=== PATIENT | female | born 1935 | race Caucasian/White ===

== ENCOUNTER 2016-07-06 16:03 | Inpatient (IN) | payer MEDICARE ==
[~2016-07-06 16:03] MED LIST: ADVAIR 100-501 EACH PO; ASPIRIN81 M1 PO; ATIVAN1 M2 PO; BACTRIM DS TAB1 EAC2 PO; BP MED; COMPAZINE10 MG PO; HYDRALAZINE HCL25 M1 PO; HYDROCODON-ACE1 EA16 PO; IRON18 M1 PO; LEVAQUIN750 M1 PO; MACROBID 100 M100 M1 PO; MAGNESIUM; MAGNESIUM DR64 M2 PO; MULTI VITAMIN1 EAC2 PO; NORCO 10-325 T1 EACH PO; NORVASC5 M2 PO; OS-CAL 500+D31 EAC1 PO; OXCARBAZEPINE300 M1 PO; PROTONIX40 M2 PO; TRILEPTAL300 M2 PO; TYLENOL EXTRA500 M1 PO; VENTOLIN HFA18 G2 PO; VITAMIN B122500 MC1 PO; ZOFRAN4 M2 PO
[2016-07-06 17:27] LABS: BASO % 0.4 % (0-2); EOS % 0.4 % (0-7); HGB-HEMOGLOBIN 7.8 gm/dl (12.0-15.5); LYMPH % 33.7 % (20-45); LYMPH ABSOLUTE COUNT 0.8 tho/cmm (0.8-4.5); MCH (MEAN CORPUSCULAR HGB) 38.2 pg (28.0-32.0); MCV (MEAN CELL VOLUME) 109.3 fl (82.0-96.0); MEAN PLATELET VOLUME 7.9 cmc (9.4-12.4); MONO % 11.8 % (0-12); MONOCYTE ABSOLUTE COUNT 0.3 tho/cmm (0.0-1.2); NEUTROPHIL ABSOLUTE COUNT 1.3 tho/cmm (1.6-8.0); NEUTROPHIL-AUTOMATED 1.3 tho/cmm (1.6-8.0); NEUTROPHILS % 53.7 % (40-80); PLATELET COUNT 90 tho/cmm (150-450); RED BLOOD COUNT 2.04 mil/cmm (4.00-5.20); RED CELL DISTRIBUTION WIDTH 11.5 % (12.4-16.4); WHITE BLOOD COUNT 2.5 tho/cmm (4.0-10.0)
[2016-07-06 17:28] LABS: HCT-HEMATOCRIT 22.3 % (34.0-49.0)
[2016-07-06 17:42] LABS: ALB/GLOB RATIO 1.1 (0.8-2.0); ALBUMIN 3.1 g/dl (3.5-5.0); ALKALINE PHOSPHATASE 92 U/L (33-138); ALT/SGPT 14 U/L (12-78); ANION GAP 13 mmol/L (0-20); AST/SGOT 16 U/L (10-40); BILIRUBIN,TOTAL 0.3 mg/dl (0-1.5); BLOOD UREA NITROGEN 12 mg/dl (6-24); CALCIUM 7.8 mg/dl (8.5-10.5); CARBON DIOXIDE-VENOUS 25 mmol/L (22-32); CHLORIDE 90 mmol/l (96-110); CREATININE 0.74 mg/dl (0.50-1.10); GLUCOSE 99 mg/dL (70-110); POTASSIUM 4.3 mmol/L (3.7-5.1); SODIUM 124 mmol/L (135-145); eGFR VALUE FOR BLACK 88 mL/Min
[2016-07-06 19:03] LABS: URINE APPEARANCE CLOUDY; URINE BILIRUBIN NEGATIVE (NEG); URINE BLOOD LARGE (NEG); URINE COLOR YELLOW; URINE GLUCOSE (UA) NEGATIVE (NEG); URINE KETONE NEGATIVE (NEG); URINE LEUKOCYTE ESTERASE POSITIVE (NEG); URINE NITRITE NEGATIVE (NEG); URINE PROTEIN MODERATE (NEG); URINE SPECIFIC GRAVITY 1.005 (1.003-1.030)
[2016-07-06 19:11] LABS: URINE AMORPHOUS 1+; URINE EPITHELIAL CELLS 0-1 /[HPF] (0-10); URINE RBC FULL FIELD /[HPF] (0-5)
[2016-07-06 20:29] LABS: URINE SODIUM-RANDOM 59 mmol/L (20-110)
[2016-07-06 21:01] LABS: OSMOLALITY 251 mOsm/kg (275-295)
[2016-07-07 05:57] LABS: BASO % 0.4 % (0-2); HGB-HEMOGLOBIN 8.4 gm/dl (12.0-15.5); LYMPH % 26.6 % (20-45); LYMPH ABSOLUTE COUNT 0.6 tho/cmm (0.8-4.5); MCH (MEAN CORPUSCULAR HGB) 38.5 pg (28.0-32.0); MCV (MEAN CELL VOLUME) 107.3 fl (82.0-96.0); MEAN PLATELET VOLUME 8.4 cmc (9.4-12.4); MONO % 15.3 % (0-12); MONOCYTE ABSOLUTE COUNT 0.4 tho/cmm (0.0-1.2); NEUTROPHIL ABSOLUTE COUNT 1.3 tho/cmm (1.6-8.0); NEUTROPHIL-AUTOMATED 1.3 tho/cmm (1.6-8.0); NEUTROPHILS % 57.7 % (40-80); PLATELET COUNT 72 tho/cmm (150-450); RED BLOOD COUNT 2.18 mil/cmm (4.00-5.20); RED CELL DISTRIBUTION WIDTH 12.6 % (12.4-16.4); WHITE BLOOD COUNT 2.3 tho/cmm (4.0-10.0)
[2016-07-07 05:59] LABS: HCT-HEMATOCRIT 23.4 % (34.0-49.0); MCHC MEAN CORPUSCULAR HGB CONC 35.9 % (32.0-36.0)
[2016-07-07 06:13] LABS: ANION GAP 11 mmol/L (0-20); BLOOD UREA NITROGEN 8 mg/dl (6-24); CALCIUM 7.9 mg/dl (8.5-10.5); CARBON DIOXIDE-VENOUS 25 mmol/L (22-32); CHLORIDE 99 mmol/l (96-110); CREATININE 0.53 mg/dl (0.50-1.10); GLUCOSE 97 mg/dL (70-110); MAGNESIUM 1.9 mg/dl (1.3-2.6); POTASSIUM 3.5 mmol/L (3.7-5.1); SODIUM 131 mmol/L (135-145); eGFR VALUE FOR BLACK >90 mL/Min
[2016-07-07 06:51] LABS: PROTHROMBIN TIME 11.3 SECONDS (9.0-13.6)
[2016-07-08 05:19] LABS: BASO % 0.2 % (0-2); EOS % 0.2 % (0-7); HGB-HEMOGLOBIN 8.4 gm/dl (12.0-15.5); IMMATURE GRANULOCYTES ABSOLUTE 0.01 tho/cmm (0-0.03); IMMATURE GRANULOCYTES PERCENT 0.2 % (0-0.3); LYMPH % 23.2 % (20-45); MCH (MEAN CORPUSCULAR HGB) 39.1 pg (28.0-32.0); MCV (MEAN CELL VOLUME) 110.7 fl (82.0-96.0); MEAN PLATELET VOLUME 8.4 cmc (9.4-12.4); MONOCYTE ABSOLUTE COUNT 0.5 tho/cmm (0.0-1.2); NEUTROPHIL ABSOLUTE COUNT 2.9 tho/cmm (1.6-8.0); NEUTROPHIL-AUTOMATED 2.9 tho/cmm (1.6-8.0); NEUTROPHILS % 65.2 % (40-80); PLATELET COUNT 82 tho/cmm (150-450); RED BLOOD COUNT 2.15 mil/cmm (4.00-5.20)
[2016-07-08 05:28] LABS: ANION GAP 14 mmol/L (0-20); BLOOD UREA NITROGEN 10 mg/dl (6-24); CALCIUM 8.1 mg/dl (8.5-10.5); CARBON DIOXIDE-VENOUS 23 mmol/L (22-32); CHLORIDE 103 mmol/l (96-110); GLUCOSE 100 mg/dL (70-110); POTASSIUM 3.9 mmol/L (3.7-5.1); SODIUM 136 mmol/L (135-145); eGFR VALUE FOR BLACK 80 mL/Min
[2016-07-08 05:35] LABS: HCT-HEMATOCRIT 23.8 % (34.0-49.0); MCHC MEAN CORPUSCULAR HGB CONC 35.3 % (32.0-36.0); WHITE BLOOD COUNT 4.4 tho/cmm (4.0-10.0)
[2016-07-09 05:34] LABS: BASO % 0.6 % (0-2); EOS % 0.3 % (0-7); HGB-HEMOGLOBIN 7.4 gm/dl (12.0-15.5); IMMATURE GRANULOCYTES ABSOLUTE 0.01 tho/cmm (0-0.03); IMMATURE GRANULOCYTES PERCENT 0.3 % (0-0.3); LYMPH % 25.9 % (20-45); LYMPH ABSOLUTE COUNT 0.9 tho/cmm (0.8-4.5); MCH (MEAN CORPUSCULAR HGB) 39.2 pg (28.0-32.0); MCV (MEAN CELL VOLUME) 111.6 fl (82.0-96.0); MEAN PLATELET VOLUME 8.4 cmc (9.4-12.4); MONO % 13.6 % (0-12); MONOCYTE ABSOLUTE COUNT 0.5 tho/cmm (0.0-1.2); NEUTROPHILS % 59.3 % (40-80); PLATELET COUNT 65 tho/cmm (150-450); RED BLOOD COUNT 1.89 mil/cmm (4.00-5.20); WHITE BLOOD COUNT 3.3 tho/cmm (4.0-10.0)
[2016-07-09 05:55] LABS: HCT-HEMATOCRIT 21.1 % (34.0-49.0); MCHC MEAN CORPUSCULAR HGB CONC 35.1 % (32.0-36.0)
== END 2016-07-09 17:56 | DRG 641 ==
LOC: EDMED 16:03 → EMR2 19:35 → 5WF 21:25 → ORW 07-08 08:29 → PACU 07-08 09:39 → 5WF 07-08 10:15
PROVIDERS: Emergency Medicine; Internal Medicine; ADMIT Internal Medicine
PROC: 0TP98DZ Removal of Intraluminal Device from Ureter, Via Natural or Artificial Opening Endoscopic (ICD-10-PCS; principal; 2016-07-08)
PROC: 0T768DZ Dilation of Right Ureter with Intraluminal Device, Via Natural or Artificial Opening Endoscopic (ICD-10-PCS; 2016-07-08)
PROC: 0T778DZ Dilation of Left Ureter with Intraluminal Device, Via Natural or Artificial Opening Endoscopic (ICD-10-PCS; 2016-07-08)
DX: E87.1 Hypo-osmolality and hyponatremia (principal); D61.818 Other pancytopenia; C53.9 Malignant neoplasm of cervix uteri, unspecified; G40.909 Epilepsy, unspecified, not intractable, without status epilepticus; I10 Essential (primary) hypertension; N13.5 Crossing vessel and stricture of ureter without hydronephrosis
CPT/HCPCS: C1769; C1830; C2617; G0364; G0378; G8978-GP-CJ; G8979-GP-CI; G8987-GO-CI; G8988-GO-CI; G8989-GO-CI; J1956; J2250; J3010; J7030; P9016; Q9967

== ENCOUNTER 2016-09-28 15:21 | Emergency (ER) | payer MEDICARE ==
[2016-09-28] MEDS ORDERED: FEOSOL325 M1 PO (17:17)
[2016-09-28] MEDS ORDERED: CALCIUM 600 +1 EA10 PO (17:18)
[2016-09-28] MEDS ORDERED: MULTIVITAMINS1 EAC6 PO (17:18)
[2016-09-28] MEDS ORDERED: B-12500 MC1 PO (17:18)
[2016-09-28 17:26] LABS: BASO % 0.3 % (0-2); EOS % 0.3 % (0-7); HCT-HEMATOCRIT 24.5 % (34.0-49.0); HGB-HEMOGLOBIN 8.9 gm/dl (12.0-15.5); LYMPH % 21.8 % (20-45); LYMPH ABSOLUTE COUNT 0.7 tho/cmm (0.8-4.5); MCH (MEAN CORPUSCULAR HGB) 38.2 pg (28.0-32.0); MCHC MEAN CORPUSCULAR HGB CONC 36.3 % (32.0-36.0); MCV (MEAN CELL VOLUME) 105.2 fl (82.0-96.0); MEAN PLATELET VOLUME 8.2 cmc (9.4-12.4); MONO % 10.4 % (0-12); MONOCYTE ABSOLUTE COUNT 0.3 tho/cmm (0.0-1.2); NEUTROPHIL ABSOLUTE COUNT 2.1 tho/cmm (1.6-8.0); NEUTROPHIL-AUTOMATED 2.1 tho/cmm (1.6-8.0); NEUTROPHILS % 67.2 % (40-80); PLATELET COUNT 72 tho/cmm (150-450); RED BLOOD COUNT 2.33 mil/cmm (4.00-5.20); RED CELL DISTRIBUTION WIDTH 13.4 % (12.4-16.4); WHITE BLOOD COUNT 3.2 tho/cmm (4.0-10.0)
[2016-09-28 17:38] LABS: ANION GAP 12 mmol/L (0-20); BLOOD UREA NITROGEN 12 mg/dl (6-24); CARBON DIOXIDE-VENOUS 24 mmol/L (22-32); CHLORIDE 91 mmol/l (96-110); GLUCOSE 90 mg/dL (70-110); POTASSIUM 4.2 mmol/L (3.7-5.1); SODIUM 123 mmol/L (135-145); eGFR VALUE FOR BLACK >90 mL/Min
== END 2016-09-28 21:10 ==
LOC: EDMED 15:21
PROVIDERS: Nurse Practitioner Family
DX: E87.1 Hypo-osmolality and hyponatremia (principal); D61.818 Other pancytopenia
CPT/HCPCS: J7030